=== PATIENT | female | born 1995 | race Caucasian/White ===

== ENCOUNTER 2018-10-15 14:59 | Observation (INO) | payer MEDICAID ==
[2018-10-15] MEDS ORDERED: ONDANSETRON HCL IV 4 MG/2 ML VIAL IV ONE (15:15)
[2018-10-15] MEDS ORDERED: SODIUM CHLORIDE 0.9% 500 ML IV ONE (15:15)
[2018-10-15] MEDS ORDERED: ACETAMINOPHEN 1,000 MG/100 ML BTL IVPB ONE (15:16)
--- NOTE | 2018-10-15 15:21 | Emergency Department Record ---
History of Present Illness - General Chief Complaint: Abdominal Pain Stated Complaint: ABDOMINAL PAIN Time Seen by Provider: 10/15/18 15:08 Source: Patient Mode of Arrival: Ambulatory Limitations: No limitations - History of Present Illness Initial Comments: The patient is here due to upper and mid AP for the last 5 hours. The pain is sharp and stabbing and is associated with nausea but no vomiting yet. The patient denies any recent illnesses but has had similar issues with an ileus in the past. She was admitted in 2014 overnight due to the pain and possible SBO vs Ileus then. The patient did go home the next day after the pain resolved. She has had no hx of any abdominal surgeries. The patient denies any dysuria or any vaginal issues. MD Complaint: Abdominal pain Onset/Timin -: Hour(s) Location: Epigastric Severity scale (1-10): 8 Quality: Stabbing Consistency: Constant Improves With: Nothing Worsens With: Nothing - Related Data LMP (females 10-50): Unknown Home Medications Medication Instructions Recorded Confirmed Last Taken Norethindrone AC-Eth Estradiol 1 each PO DAILY 10/15/18 10/15/18 Unknown [Gregory 1.5 mg-30 Mcg Tablet] Allergies Allergy/AdvReac Type Severity Reaction Status Date / Time No Known Drug Allergies Allergy Verified 10/15/18 15:10 Travel Screening - Travel/Exposure Within Last 30 Days Have you traveled within the last 30 days?: No - Travel/Exposure Within Last Year Have you traveled outside the [place] in the last year?: No - Additonal Travel Details Have you been exposed to anyone with a communicable illness?: No Review of Systems Constitutional: Denies: Chills, Fever Eyes: Denies: Eye discharge ENT: Denies: Congestion Respiratory: Denies: Cough, Dyspnea Cardiovascular: Denies: Arrhythmia Endocrine: Denies: Fatigue Gastrointestinal: Reports: Abdominal pain, Nausea. Denies: Diarrhea, Vomiting Genitourinary: Denies: Dysuria Musculoskeletal: Denies: Back pain Skin: Denies: Bruising Past Medical History - SOCIAL HISTORY Smoking Status: Never smoker Alcohol Use: Rare Drug Use: None - RESPIRATORY Hx Respiratory Disorders: No - CARDIOVASCULAR Hx Cardio Disorders: No - NEURO Hx Neuro Disorders: No - GI Hx GI Disorders: Yes Hx Obstructive Bowel: Yes - Hx Genitourinary Disorders: Yes Hx UTI: Yes - ENDOCRINE Hx Endocrine Disorders: No - MUSCULOSKELETAL Hx Musculoskeletal Disorders: No - PSYCH Hx Psych Problems: No - HEMATOLOGY/ONCOLOGY Hx Hematology/Oncology Disorders: No Family Medical History Any Significant Family History?: No Physical Exam - General General Appearance: Alert, Oriented x3, Cooperative, No acute distress - Head Head exam: Atraumatic, Normocephalic, Normal inspection - Eye Eye exam: Normal appearance, PERRL - ENT Throat exam: Normal inspection. negative: Tonsillar erythema, Tonsillar exudate - Neck Neck exam: Normal inspection, Full ROM. negative: Tenderness - Respiratory Respiratory exam: Normal lung sounds bilaterally. negative: Respiratory distress - Cardiovascular Cardiovascular Exam: Regular rate, Normal rhythm, Normal heart sounds - GI/Abdominal GI/Abdominal exam: Soft, Diminished bowel sounds, Guarding, Tenderness (There is diffuse tenderness in all 4 quads.). negative: Distended, Rebound, Rigid - Extremities Extremities exam: Normal inspection, Full ROM, Normal capillary refill. negative: Tenderness - Back Back exam: Reports: Normal inspection - Neurological Neurological exam: Alert, Normal gait. negative: Abnormal gait, Motor sensory deficit - Psychiatric Psychiatric exam: negative: Anxious - Skin Skin exam: negative: Rash Course Vital Signs 10/15/18 15:00 Temperature 98.3 F Pulse Rate 68 Respiratory 16 Rate Blood Pressure 125/77 Pulse Ox 100 - Reevaluation(s) Reevaluation #1: The patient is doing better after the pain medicines and Zofran. On exam her abdomen is very soft but still with mild tenderness. I did discuss the lab work and CT results and did recommend hospital admission and the patient did agree. I then did discuss the case with Dr. Connell and he will see the patient tomorrow in consultation. I also did discuss the case with Mariam ([employer] OPERATOR) and she did accept the patient for admission for Dr. Caldwell. 10/15/18 16:55 Medical Decision Making - Data Complexity MDM Data: Labs Ordered and/or Reviewed, X-Ray Ordered and/or Reviewed - Lab Data Result diagrams: 10/15/18 15:25 10/15/18 15:25 - Radiology Data Radiology results: Report reviewed (Abd CT: distal SBO) Disposition Disposition: Admit Clinical Impression: SBO (small bowel obstruction) Disposition: Still a Patient at [facility] Decision to Admit: Admit from ER Decision to Admit Date: 10/15/18 Decision to Admit Time: 16:56 Accepting Physician: Paulette Condition: (2) Stable Forms: Patient Portal Access Time of Disposition: 16:57 Quality - Quality Measures Quality Measures: N/A - Blood Pressure Screening View Details: Yes Does Patient Have Any of the Following: No Blood Pressure Classification: Pre-Hypertensive BP Reading Systolic Measurement: 125 Diastolic Measurement: 77 Screening for High Blood Pressure: < Pre-Hypertensive BP, F/U Documented > [ [id number]] Pre-Hypertensive Follow-up Interventions: Referral to alternative/primary care provider.
[2018-10-15 15:32] LABS: BASO % 0.4 % (0-6); EOS % 0.4 % (0-6); GRAN % 79.6 % (47-80); HEMATOCRIT 43.2 % (35.0-47.0); HEMOGLOBIN 14.5 gm/dl (11.6-16.0); LYMPH % 13.9 % (16-45); MEAN CELL VOLUME 89.3 fl (81-97); MEAN CORPUSCULAR HGB CONC 33.6 g/dl (32-36); MEAN PLATELET VOLUME 10.9 fl (7.4-10.4); MONO % 5.7 % (0-9); PLATELET COUNT 336 K/uL (130-400); RED BLOOD COUNT 4.84 M/uL (3.80-5.40); RED CELL DISTRIBUTION WIDTH 13.2 % (11.5-14.5); WHITE BLOOD COUNT W/O DIFF 14.1 K/uL (4.2-12.2)
[2018-10-15 15:45] LABS: BLOOD UREA NITROGEN 7 mg/dL (6-20)
[2018-10-15 15:46] LABS: CREATININE 0.6 mg/dL (0.5-0.9); EST GLOMERULAR FILTRATION RATE > 60 mL/min; LIPASE 29 U/L (13-60)
[2018-10-15 15:48] LABS: GLUCOSE,RANDOM 99 mg/dL (74-109)
[2018-10-15 15:51] LABS: ALBUMIN 4.8 g/dL (4.0-5.0); ALKALINE PHOSPHATASE 48 U/L (35-104); ALT/SGPT 13 U/L (<33); AST/SGOT 16 U/L (10.0-35.0)
[2018-10-15 15:55] LABS: BILIRUBIN,DIRECT < 0.2 mg/dL (0-0.3)
[2018-10-15] MEDS ORDERED: HYDROMORPHONE HCL 2 MG/ML VIAL IVP ONE (16:35)
[2018-10-15] MEDS ORDERED: ONDANSETRON HCL IV 4 MG/2 ML VIAL IVP PRN (17:37)
[2018-10-15] MEDS ORDERED: HYDROMORPHONE HCL 2 MG/ML VIAL IV PRN (17:37)
[2018-10-15] MEDS: POTASSIUM CHLORIDE/D5-0.9%NACL 20 MEQ/1,000 ML BAG IV SCH (17:48)
[2018-10-16] MEDS: POTASSIUM CHLORIDE/D5-0.9%NACL 20 MEQ/1,000 ML BAG IV SCH ×2 (01:58→10:41)
--- NOTE | 2018-10-16 05:24 | CT SCAN REPORT ---
EXAM: CT OF THE ABDOMEN AND PELVIS WITHOUT CONTRAST HISTORY: ABDOMINAL PAIN SINCE 10:00 A.M. THIS MORNING. TECHNIQUE: Helical CT examination of the abdomen and pelvis was performed without oral or intravenous contrast administration. Lack of oral and IV contrast utilization limits evaluation of the bowel and solid viscera respectively. Comparison: CT of the abdomen and pelvis with contrast dated 11/11/14. FINDINGS: The lung bases are clear. No pleural or pericardial effusion. The heart is not enlarged. The liver, spleen, pancreas, adrenal glands, and kidneys are normal in appearance. The gallbladder is unremarkable and no biliary ductal dilatation is seen. The vasculature to the extent visualized is unremarkable. No definite intraabdominal nor retroperitoneal lymphadenopathy. There are multiple loops of mildly dilated small bowel in the mid abdomen with solid stool suggested within a loop of small bowel in the right lower quadrant. This segment is in close proximity to the ascending colon though is not definitely the terminal ileum. There may be decompressed terminal ileum located more posteriorly. The appendix is not visualized with confidence. There are small amounts of free fluid within the pelvis and right pericolic gutter to the level of Jackman's pouch. No free intraperitoneal air. No definite pelvic mass nor lymphadenopathy though evaluation is limited. No intrinsic urinary bladder abnormality. No lytic or blastic bone lesion. IMPRESSION: 1. THE EXAMINATION IS LIMITED BY LACK OF ORAL AND IV CONTRAST UTILIZATION. THERE ARE MULTIPLE LOOPS OF DILATED MID TO DISTAL SMALL BOWEL WITH A SEGMENT IN THE RIGHT ABDOMEN CONTAINING SOLID STOOL. THE COLON IS DECOMPRESSED AND THERE MAY BE DECOMPRESSED TERMINAL ILEUM IN THE RIGHT LOWER QUADRANT. THESE FINDINGS ARE SUSPICIOUS FOR MECHANICAL OBSTRUCTION. AN INFLAMMATORY PROCESS INVOLVING THE MOST DISTAL SEGMENT OF BOWEL CANNOT BE EXCLUDED. 2. SMALL AMOUNT OF ASCITES WITHIN THE PELVIS AND RIGHT PERICOLIC GUTTER. 3. NO FREE INTRAPERITONEAL AIR. 4. FINDINGS WERE DISCUSSED WITH DR. ECHAVARRIA AT THE TIME OF DICTATION. JOB [facility]BER: [id number] [facility]
[2018-10-16 07:14] LABS: BLOOD UREA NITROGEN 5 mg/dL (6-20); CREATININE 0.6 mg/dL (0.5-0.9); EST GLOMERULAR FILTRATION RATE > 60 mL/min; GLUCOSE,RANDOM 106 mg/dL (74-109)
[2018-10-16 07:45] LABS: BASO % 0.3 % (0-6); EOS % 1.3 % (0-6); GRAN % 67.1 % (47-80); HEMATOCRIT 37.8 % (35.0-47.0); HEMOGLOBIN 12.2 gm/dl (11.6-16.0); LYMPH % 23.8 % (16-45); MEAN CELL VOLUME 91.3 fl (81-97); MEAN CORPUSCULAR HEMOGLOBIN 29.5 pg (27-33); MEAN CORPUSCULAR HGB CONC 32.3 g/dl (32-36); MEAN PLATELET VOLUME 11.4 fl (7.4-10.4); MONO % 7.5 % (0-9); PLATELET COUNT 285 K/uL (130-400); RED BLOOD COUNT 4.14 M/uL (3.80-5.40); RED CELL DISTRIBUTION WIDTH 13.2 % (11.5-14.5); WHITE BLOOD COUNT W/O DIFF 7.1 K/uL (4.2-12.2)
[2018-10-16] MEDS ORDERED: PANTOPRAZOLE SODIUM IV 40 MG VIAL IV SCH (10:00)
[2018-10-16] MEDS ORDERED: MAGNESIUM HYDROXIDE 30 ML UDC PO ONE (13:14)
--- NOTE | 2018-10-16 17:48 | Discharge Note ---
Discharge Medications - Discharge Medications Home Medications: Ambulatory Orders Norethindrone AC-Eth Estradiol [Gregory 1.5 mg-30 Mcg Tablet] 1 each PO DAILY [Last Taken Unknown] Discharge Note - Date Date of Discharge Note: 10/16/18 Condition: (2) Stable Forms: Patient Portal Access
--- NOTE | 2018-10-16 18:11 | Discharge Note ---
VTE H&P Assessment - Risk for VTE Risk for VTE: Yes Risk Level: Low Risk Assessment Date: 10/16/18 Risk Assessment Time: 18:06 (increase patient ambulation) VTE Orders Placed or Will Be Placed: Yes Discharge Medications - Discharge Medications Prescriptions: Dicyclomine HCl [Bentyl] 10 mg PO Q8H #30 cap Home Medications: Ambulatory Orders Norethindrone AC-Eth Estradiol [Gregory 1.5 mg-30 Mcg Tablet] 1 each PO DAILY [Last Taken Unknown] Dicyclomine HCl [Bentyl] 10 mg PO Q8H #30 cap 10/16/18 [Last Taken Unknown] Discharge Note - Date Date of Discharge Note: 10/16/18 Disposition: Home, Self-Care Condition: (1) Good Additional Instructions: follow up with outpatient surgery on monday as scheduled at [facility] on monday tylenol for pain 325 mg two pills every 6 hours as needed advance diet slowly Referrals: MISTY DEJESUS, D.O. [Primary Care Provider] - Forms: Patient Portal Access
--- NOTE | 2018-10-17 07:29 | RADIOLOGY REPORT ---
EXAM: ABDOMEN, SINGLE VIEW HISTORY: POSSIBLE SMALL BOWEL OBSTRUCTION. ABDOMINAL PAIN. TECHNIQUE: A single portable upright view of the abdomen was obtained. Comparison: CT of the abdomen and pelvis 10/15/18. FINDINGS: No visible pneumoperitoneum. No visible small bowel loops. Moderate stool seen along the course of the transverse colon. The pelvis is not included on the image. The lung bases are clear. IMPRESSION: NONSPECIFIC BOWEL GAS PATTERN; PREVIOUSLY SEEN DILATED SMALL BOWEL LOOPS ARE NOT EVIDENT RADIOGRAPHICALLY. JOB NUMBER: [id number] [facility]
--- NOTE | 2018-10-17 08:41 | Medical Records Consult ---
DATE OF CONSULTATION: 10/16/2018 REASON FOR CONSULTATION: Small bowel obstruction. INDICATIONS: The patient is a 22-year-old female who developed about of 2-day stretch of abdominal pain. This was periumbilical. She described the pain as a cramping sensation with some radiation to her flanks. She did not vomit. She had a bowel movement yesterday and has been passing gas today. She was seen at [facility] ER last night where workup was done. This did reveal a mildly elevated white blood cell count of 14,000. CT scan done without oral contrast revealed some dilated small bowel with decompressed distal ileum. They described it as possible tethering in her right lower quadrant. Today she feels better. She is hungry. She wants to eat. She had a very similar episode happen about 2 years ago which was treated conservatively without resolution. PAST MEDICAL HISTORY: Negative for any significant illnesses. PAST SURGICAL HISTORY: Denies. CURRENT MEDICATIONS: control pills. ALLERGIES: None. SOCIAL HISTORY: Denies any tobacco or alcohol usage. PHYSICAL EXAMINATION: VITAL SIGNS: Stable. She is afebrile. HEART: Regular. LUNGS: Clear. ABDOMEN: Soft. Minimal tenderness around her periumbilical region. No guarding or rebound. Bowel sounds are noted. EXTREMITIES: No trace of edema. LABORATORY DATA: Normal white blood cell count. Repeat x-ray is pending. IMPRESSION AND PLAN: Partial small bowel obstruction versus ileus. Overall, the patient is clinically improving. Due to her lack of surgical history, her issues with inflammatory bowel disease, I really have no reason for an underlying mechanical obstruction. Due to the recurrent nature of this, I did offer diagnostic laparoscopy, which she agreed to. We will schedule this for Monday. Risks include bleeding, infection, bowel injury, need for laparotomy. She understands this. We will go ahead and institute a diet later today. Thank you for this referral. CC: MISTY DEJESUS D.O. [place]
--- NOTE | 2018-10-17 08:50 | Discharge Summary ---
DATE: 10/16/2018 DISCHARGE DIAGNOSES: 1. Partial small bowel obstruction which has opened up. 2. Abdominal pain. ATTENDING PHYSICIAN: Ebenezer Hampton DO Observation patient. REASON FOR HOSPITALIZATION: This 22-year-old female presented to the emergency department with upper and mid abdominal pain for the last 5 hours. It was associated with nausea but no vomiting. She had a similar episode back in 2014. The CT scan revealed multiple loops of dilated [id number] small bowel with a segment in the right abdomen containing solid stool. The colon was decompressed and there may be decompression in the terminal ileum in the right and left lower quadrants. These findings are suspicious for mechanical obstruction. Inflammatory process along the most distal segment of the bowel cannot be excluded. Small amount of ascites within the pelvis in the right pericolic gutter. No free intraperitoneal area. Findings discussed with Dr. Miguel. Repeat abdominal x-ray showed improvement. No air-fluid levels on the flat plate of the abdomen taken on the day of discharge. SIGNIFICANT FINDINGS: White count on discharge 7100, hemoglobin 12.2, potassium 4.1, serum was negative. White count in the emergency department was 14,100. THERAPY PROVIDED: IV fluids. IV pain medication. Her diet was gradually advanced. She is on clear liquids on discharge. Passing gas without discomfort in her abdomen at this time. HOSPITAL COURSE: Uneventful. Consult by Dr. Connell who felt he would like to schedule her for an outpatient exploratory laparotomy Monday at [facility] because of some abnormality on the CT scan. CONDITION ON DISCHARGE: Much improved. DISCHARGE INSTRUCTIONS: Follow up with Dr. Connell on Monday at [facility] for outpatient surgery. Follow up with Dr. Saunders in 1-2 weeks. Advance diet as tolerated. Bentyl 10 mg 3 times a day and Tylenol 325 one to two pills every 6 hours p.r.n. pain. MTDD
--- NOTE | 2018-10-17 08:50 | History and Physical Report ---
DATE OF ADMISSION: 10/15/2018 CHIEF COMPLAINT: Abdominal pain. HISTORY OF PRESENT ILLNESS: She presented with abdominal pain that started 5 hours prior to coming into the emergency department. She did have a bowel movement on the day of admission, yesterday. She had a previous bowel obstruction that resolved on its own conservatively in 2014. She was evaluated in the emergency department by Dr. Miguel and admitted to the hospital for abdominal pain, small bowel obstruction, and consultation with Dr. Connell on the phone. He came in to see the patient today. PAST MEDICAL HISTORY: No surgeries. She has had one episode of partial small bowel obstruction which resolved on its own, possibly an ileus. She has had urinary tract infections in the past. MEDICATIONS: 1. control pills. She is on norethindrone AC tablets one a day. 2. Flonase nasal spray. ALLERGIES: No known drug allergies. FAMILY/PSYCHOSOCIAL HISTORY: No significant family history. Never smoked. No drug use. Rare alcohol use. REVIEW OF SYSTEMS: HEENT: No upper respiratory infection symptoms, cough, cold, or congestion. Cardiovascular: No chest pain, palpitations, or arrhythmia. Respiratory: No cough, cold, or congestion. Gastrointestinal: See Chief Complaint. She has abdominal pain. Genitourinary: No dysuria, hematuria, frequency, or burning on urination. Musculoskeletal: No joint or bone abnormalities. Neurological: No CVA, paralysis, or paresthesias. ELECTRONIC SYSTEM ENGINEER: Unremarkable for lumps in her breasts or abnormal vaginal bleeding. Endocrine: No diabetes or thyroid disease. Integument: No rash, ulcers, change in moles, or yellow skin. PHYSICAL EXAMINATION: VITALS: Height 5 feet 7 inches, weight 130 pounds. Temperature 98.1, pulse 67, blood pressure 108/58, respiratory rate 16, pulse ox 100% on room air. HEENT: Pupils are equal, round, and reactive to light and accommodation. Extraocular muscles are intact. Throat is clear. Nose is clear. Tympanic membranes are quiroga. NECK: Supple. No jugular venous distention. No hepatojugular reflux. No carotid bruits. Thyroid is smooth. CARDIOVASCULAR: Regular rate and rhythm without murmurs, clicks, rubs, or gallops. RESPIRATORY: Clear to auscultation and percussion. ABDOMEN: Slight discomfort in the periumbilical area but not much compared to what she came in with yesterday. Soft. Bowel sounds are present. She is passing gas. She is tolerating clear liquids without problem. EXTREMITIES: No pitting edema. No cyanosis, no clubbing. Full range of motion. Peripheral pulses are good. BREASTS: Exam deferred. GYNECOLOGICAL: Exam deferred. RECTAL: Exam deferred. NEUROLOGIC: Cranial nerves II-XII intact. No gross defects. Sensation normal, strength normal. Deep tendon reflexes equal bilaterally with Babinski negative. MENTAL STATUS: Alert and oriented x3. IMPRESSION: 1. Partial small bowel obstruction which has opened up. 2. Abdominal pain. PLAN: Discharge. Dr. Connell consult. Discussed the case with Dr. Connell who felt it safe to go home. Also send her home with Bentyl 10 mg 3 times a day and Tylenol for pain p.r.n. This is an observation patient. [facility]
== END 2018-10-16 19:05 | disposition home or self-care (01) ==
LOC: ER 14:59 → MEDSURG 17:25
PROVIDERS: ADMIT Internal Medicine; ATTEND Internal Medicine
DX: K56.609 Unspecified intestinal obstruction, unspecified as to partial versus complete obstruction (principal); R11.0 Nausea; Z87.19 Personal history of other diseases of the digestive system
CPT/HCPCS: 99285 ×2; 96365; 96375; 83690; 85025 ×2; 80076; 80048 ×2; 84703; 74018; 74176; G0378 ×2; J2405; J1170 ×2; C9113; J3480

== ENCOUNTER → 2018-10-22 | Day surgery (SDC) | payer MEDICAID ==
[~2018-10-22] MED LIST: ACETAMINOPHEN 1,000 MG/100 ML BTL IVPB ONE; BUPIVACAINE 0.25% W/EPI MPF 30ML VIAL SQ ONE; DESFLURANE 240 ML BTL INH ONE; DEXAMETHASONE 4 MG/ML 1ML VIAL IVP ONE; DIPHENHYDRAMINE HCL 50 MG/ML VIAL IVP ONE; FAMOTIDINE 20MG TABLET PO ONE; FENTANYL PF 100MCG/2ML VIAL IV ONE; HYDROCODONE/APAP 5/325MG TABLET PO ONE; LIDOCAINE 2% MDV (20MG/ML) 20ML VIAL IV ONE; MECLIZINE 25 MG TABLET PO ONE; METOCLOPRAMIDE 10 MG TABLET PO ONE; MIDAZOLAM HCL 2MG/2ML VIAL IV ONE; ONDANSETRON HCL IV 4 MG/2 ML VIAL IVP ONE; PROPOFOL 10 MG/ML VIAL IV ONE; RINGERS SOLUTION,LACTATED 1,000 ML IV ONE; ROCURONIUM BROMIDE 50MG/5ML VIAL IV ONE; SCOPOLAMINE 1 PATCH TDSY TD ONE; SUCCINYLCHOLINE 20 MG/ML 10ML IVP ONE; SUGAMMADEX SODIUM 200 MG/2 ML VIAL IV ONE
--- NOTE | 2018-10-23 08:50 | Operative Note ---
DATE OF SURGERY: 10/22/2018 SURGEON: Cash Connell DO PREOPERATIVE DIAGNOSIS: Recurrent partial small bowel obstruction. POSTOPERATIVE DIAGNOSIS: Recurrent partial small bowel obstruction. OPERATION: Diagnostic laparoscopy. INDICATION: The patient is a 22-year-old female who has been admitted to the hospital twice now with SBO-type picture. Both times her CT scan did show findings consistent with bowel obstruction. Both of these were handled conservatively, and she did well. There were no inflammatory changes. We has no reason why the recurrent nature. I did discuss this with the Department of Gastroenterology who felt that laparoscopy may be needed in addition to CT enterography and/or scopes. Thereafter, consent was signed and questions answered. PROCEDURE: The patient was taken to the operating room and placed in a supine position. General anesthesia was administered per the department of anesthesia. The patient's abdomen was prepped and draped in the usual fashion. The infraumbilical region was anesthetized with a total of 5 mL of 0.25% Sensorcaine with epinephrine. A 2 cm infraumbilical incision was made. This was carried down to the anterior rectus fascia. This was incised. Mame clamps were placed on the fascial edges and brought up into the wound. Stay sutures of 0 Vicryl were placed. The posterior rectus sheath was identified and incised. The peritoneal cavity was entered bluntly. At this time, a 10 mm blunt Monica port was placed. Adequate pneumoperitoneum was established. Under direct visualization, additional 5 mm right upper quadrant and 5 mm left upper quadrant ports were then placed. The patient's arm had been tucked to the side. She was rotated into steep Trendelenburg position. General exam was done. The mid ascending colon was returned to the lateral sidewall. Both lobes of the liver were smooth and glistening. Gallbladder appeared normal. Stomach appeared normal. External exam of the colon appeared normal. Pelvis, the uterus and left side appeared normal. The patient did have some blood coming from the fimbria on the right side. There was a small amount of blood in her cul-de-sac. At this time, the small bowel was examined from the ileocecal valve to the ligament of Treitz. The distal ileum appeared to be somewhat distended but overall, there were no abnormalities of the bowel itself. There was some mild lymphadenopathy in the mesentery around the ileum. There was no appendicitis noted. There was no Meckel's diverticulum noted. Again, all parts appeared to be grossly normal. The scope was then flipped around. The transverse colon was retracted in a cephalad direction. Retroperitoneal duodenum was seen. Again, this was grossly normal. At this time, the patient was straightened, gas evacuated, and scope fully removed. The patient was leveled out, pneumoperitoneum released, all ports removed. The fascia was closed with 0 Vicryl in a [id number]-[id number] fashion. Skin at all 3 ports closed with 4-0 Vicryl. He was taken to the recovery room in satisfactory condition. FINDINGS AT THE TIME OF SURGERY: 1. Mild small bowel mesenteric lymphadenopathy. 2. Remaining exam was normal. CC: MISTY DEJESUS D.O. WAYNE
== END | disposition home or self-care (01) ==
LOC: SUR 07:21
PROVIDERS: ATTEND Surgery
DX: K56.690 Other partial intestinal obstruction (principal); I88.0 Nonspecific mesenteric lymphadenitis
CPT/HCPCS: 49320; 00790; 81025; J2405; J3010; J3490; J0330; J1200; J7120